=== PATIENT | male | born 1925 | race Caucasian/White ===

== ENCOUNTER → 2016-07-19 | Outpatient (CLI) | payer OTHER | LOC: HYPER 07:18 | DX: L89.621 Pressure ulcer of left heel, stage 1 (principal); S91.301A Unspecified open wound, right foot, initial encounter; K21.0 Gastro-esophageal reflux disease with esophagitis; R13.10 Dysphagia, unspecified; Z87.891 Personal history of nicotine dependence; X58.XXXA Exposure to other specified factors, initial encounter; Y93.89 Activity, other specified; Y92.89 Other specified places as the place of occurrence of the external cause; Y99.8 Other external cause status ==

== ENCOUNTER → 2016-08-02 | Outpatient (CLI) | payer OTHER | LOC: HYPER 07:19 | DX: S31.104D Unspecified open wound of abdominal wall, left lower quadrant without penetration into peritoneal cavity, subsequent encounter (principal); I73.9 Peripheral vascular disease, unspecified; L89.621 Pressure ulcer of left heel, stage 1; R13.10 Dysphagia, unspecified; K21.0 Gastro-esophageal reflux disease with esophagitis; I25.10 Atherosclerotic heart disease of native coronary artery without angina pectoris; I48.0 Paroxysmal atrial fibrillation; Z86.73 Personal history of transient ischemic attack (TIA), and cerebral infarction without residual deficits; Z87.891 Personal history of nicotine dependence; X58.XXXD Exposure to other specified factors, subsequent encounter ==

== ENCOUNTER → 2016-08-20 | Outpatient (CLI) | payer OTHER | LOC: HYPER 06:58 | DX: S31.104D Unspecified open wound of abdominal wall, left lower quadrant without penetration into peritoneal cavity, subsequent encounter (principal); L89.621 Pressure ulcer of left heel, stage 1; I73.9 Peripheral vascular disease, unspecified; R13.10 Dysphagia, unspecified; K21.0 Gastro-esophageal reflux disease with esophagitis; R60.0 Localized edema; R21 Rash and other nonspecific skin eruption; I25.10 Atherosclerotic heart disease of native coronary artery without angina pectoris; I10 Essential (primary) hypertension; I48.0 Paroxysmal atrial fibrillation; Z86.73 Personal history of transient ischemic attack (TIA), and cerebral infarction without residual deficits; Z87.891 Personal history of nicotine dependence; X58.XXXD Exposure to other specified factors, subsequent encounter ==

== ENCOUNTER → 2016-09-04 | Outpatient (CLI) | payer OTHER | LOC: HYPER 07:13 | DX: L89.621 Pressure ulcer of left heel, stage 1 (principal); I73.9 Peripheral vascular disease, unspecified; R13.10 Dysphagia, unspecified; K21.0 Gastro-esophageal reflux disease with esophagitis; R21 Rash and other nonspecific skin eruption; I25.10 Atherosclerotic heart disease of native coronary artery without angina pectoris; I10 Essential (primary) hypertension; I48.91 Unspecified atrial fibrillation; Z87.891 Personal history of nicotine dependence; Z86.73 Personal history of transient ischemic attack (TIA), and cerebral infarction without residual deficits ==

== ENCOUNTER → 2016-09-18 | Outpatient (CLI) | payer OTHER | LOC: HYPER 07:00 | DX: L89.623 Pressure ulcer of left heel, stage 3 (principal); S31.104D Unspecified open wound of abdominal wall, left lower quadrant without penetration into peritoneal cavity, subsequent encounter; I73.9 Peripheral vascular disease, unspecified; R13.10 Dysphagia, unspecified; K21.0 Gastro-esophageal reflux disease with esophagitis; I25.10 Atherosclerotic heart disease of native coronary artery without angina pectoris; I10 Essential (primary) hypertension; I48.0 Paroxysmal atrial fibrillation; Z86.73 Personal history of transient ischemic attack (TIA), and cerebral infarction without residual deficits; Z87.891 Personal history of nicotine dependence; X58.XXXD Exposure to other specified factors, subsequent encounter ==

== ENCOUNTER → 2016-10-09 | Outpatient (CLI) | payer OTHER | LOC: HYPER 07:17 | DX: L89.623 Pressure ulcer of left heel, stage 3 (principal); S31.104D Unspecified open wound of abdominal wall, left lower quadrant without penetration into peritoneal cavity, subsequent encounter; K21.0 Gastro-esophageal reflux disease with esophagitis; I73.9 Peripheral vascular disease, unspecified; I25.10 Atherosclerotic heart disease of native coronary artery without angina pectoris; I10 Essential (primary) hypertension; I48.0 Paroxysmal atrial fibrillation; Z87.891 Personal history of nicotine dependence; Z86.73 Personal history of transient ischemic attack (TIA), and cerebral infarction without residual deficits; X58.XXXD Exposure to other specified factors, subsequent encounter ==